=== PATIENT | male | born 1980 | race Two or more races ===

== ENCOUNTER 2023-12-08 15:23 | Emergency (ER) | payer MEDICAID, OTHER ==
[~2023-12-08] VITALS: Ht 172.7 cm; Wt 89.6 kg
[2023-12-08 15:35] VITALS: TEMP 98
[2023-12-08 15:44] VITALS: BP 115/88; PULSE 99; RESP 16; O2SAT 96
[2023-12-08] MEDS ORDERED: NAPR-746 PO (17:07)
[2023-12-08] MEDS: KETOROLAC TROMETH 30 MG/ML 1ML VIAL IM ONE (17:19)
== END 2023-12-08 17:20 | disposition home or self-care (01) ==
LOC: ER 15:23
DX: S93.492A Sprain of other ligament of left ankle, initial encounter (principal); S20.212A Contusion of left front wall of thorax, initial encounter; Z79.899 Other long term (current) drug therapy; X58.XXXA Exposure to other specified factors, initial encounter; Y93.89 Activity, other specified; Y92.89 Other specified places as the place of occurrence of the external cause; Y99.8 Other external cause status
CPT/HCPCS: 71101; 73630; 96372; 99284; J1885